=== PATIENT | female | born 1995 | race Caucasian/White ===

== ENCOUNTER 2018-10-02 19:43 | Emergency (ER) | payer SELFPAY ==
[~2018-10-02] VITALS: Ht 154.9 cm; Wt 49.9 kg
[2018-10-02 19:44] VITALS: BP 103/57
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
== END 2018-10-02 20:10 ==
LOC: MED 19:43
DX: Z04.1 Encounter for examination and observation following transport accident (principal); V89.2XXA Person injured in unspecified motor-vehicle accident, traffic, initial encounter; Y93.89 Activity, other specified; Y92.89 Other specified places as the place of occurrence of the external cause; Y99.8 Other external cause status
CPT/HCPCS: 99283